=== PATIENT | female | born 1980 | race Caucasian/White ===

== ENCOUNTER 2017-06-12 18:20 | Emergency (ER) | payer MEDICAID, OTHER ==
[~2017-06-12] VITALS: Ht 162.6 cm; Wt 61.9 kg
[~2017-06-12 18:20] MED LIST: PREN-385 PO
[2017-06-12 18:43] VITALS: BP 122/97
[2017-06-12 20:29] VITALS: BP 118/70
== END 2017-06-12 20:29 | disposition home or self-care (01) ==
LOC: MED 18:20
DX: S01.81XA Laceration without foreign body of other part of head, initial encounter (principal); R03.0 Elevated blood-pressure reading, without diagnosis of hypertension; W18.30XA Fall on same level, unspecified, initial encounter; Y93.89 Activity, other specified; Y92.89 Other specified places as the place of occurrence of the external cause; Y99.8 Other external cause status
CPT/HCPCS: 90471; 90715; 99283

== ENCOUNTER 2017-08-07 20:45 | Emergency (ER) | payer OTHER ==
[~2017-08-07] VITALS: Ht 165.1 cm; Wt 63.5 kg
[2017-08-07 20:55] VITALS: BP 112/84
--- NOTE | 2017-08-07 21:01 | NUR ---
TO LOBBY, AMBULATORY, VS STABLE, A/W FOR BED, NATASHA NOTED
--- NOTE | 2017-08-08 00:55 | NUR ---
PATIENT LEFT WITHOUT BEING SEEN BY DR. Fuentes. NO FURTHER CARE PROVIDED FOR PATIENT.
== END 2017-08-08 00:55 | disposition left against medical advice (07) ==
LOC: MED 20:45
DX: Z76.0 Encounter for issue of repeat prescription (principal); Z53.21 Procedure and treatment not carried out due to patient leaving prior to being seen by health care provider

== ENCOUNTER 2018-10-18 14:15 | Observation (INO) | payer OTHER ==
[~2018-10-18] VITALS: Ht 165.1 cm; Wt 78.0 kg
[2018-10-18] MEDS ORDERED: ACETAMINOPHEN 325 MG TAB PO PRN (15:05)
[2018-10-18] MEDS ORDERED: ACETAMINOPHEN 325 MG TAB ONE (15:17)
[2018-10-18 15:25] LABS: BILIRUBIN,URINE NEGATIVE (NEGATIVE); BLOOD, URINE TRACE-I (NEGATIVE); COLOR,URINE YELLOW (YELLOW); LEUKOCYTE ESTERASE ,URINE 1+ (NEGATIVE); NITRITE, URINE NEGATIVE (NEGATIVE); UGLUCOSE NEGATIVE (NEGATIVE)
[2018-10-18 15:28] VITALS: BP 133/81
[2018-10-18 15:29] LABS: APPEARANCE,URINE HAZY (CLEAR)
[2018-10-18 15:43] LABS: RBC,URINE 0-5 /HPF (0-5); WBC,URINE 80-100 /HPF (0-5)
[2018-10-18 15:48] LABS: BARBITURATE, URINE NEGATIVE ng/ml (NEG <=200); BENZODIAZEPINE, URINE NEGATIVE ng/mL (NEG <=200); CANNABINOID, URINE NEGATIVE ng/mL (NEG <=50); COCAINE, URINE NEGATIVE ng/mL (NEG <=300); PHENCYCLIDINE SCREEN,URINE NEGATIVE ng/mL (NEG <=25)
[2018-10-18 15:49] LABS: OPIATE, URINE NEGATIVE ng/mL (NEG <=2000)
== END 2018-10-18 17:02 | disposition home or self-care (01) ==
LOC: MLD 14:15
PROVIDERS: ADMIT Obstetrics & Gynecology; ATTEND Obstetrics & Gynecology
DX: O26.892 Other specified pregnancy related conditions, second trimester (principal); R51 Headache; Z3A.27 27 weeks gestation of pregnancy
CPT/HCPCS: 76805; 80305; 81001; 87086; 87186; G0378; Q0092; C1758

== ENCOUNTER 2018-10-25 18:04 | Emergency (ER) | payer OTHER ==
[~2018-10-25] VITALS: Ht 165.1 cm; Wt 79.2 kg
[2018-10-25 18:38] VITALS: BP 145/95
--- NOTE | 2018-10-25 19:15 | NUR ---
PATIENT REFERRED FROM CLINIC FOR RHOGAM INJECTION. PREG 28 WEEKS. PT ALSO C/O COUGH& SORE THROAT X 1 WEEK. PT STATES SHE WANTS TO TERMINATE AND SHE HAS A SHORT FRAME OF TIME IN ORDER TO DO SO. DENIES N/V/D; SKIN IS PINK/WARM/DRY; AAOX4 WITH EVEN AND STEADY GAIT; LUNGS CLEAR BL; HR EVEN AND REGULAR; PT DENIES ANY FEVER, CP, SOB, OR COUGH AT THIS TIME; PATIENT STATES PAIN OF 0/10 AT THIS TIME; VSS; PATIENT POSITIONED FOR COMFORT; HOB ELEVATED; BEDRAILS UP X2; BED DOWN. ER MD MADE AWARE OF PT STATUS.
--- NOTE | 2018-10-25 19:16 | NUR ---
PT TAKEN TO BED 7
--- NOTE | 2018-10-25 19:46 | NUR ---
Dr. Swenson evaluating patient at bedside.
[2018-10-25] MEDS ORDERED: cefTRIAXone 250 MG in LIDOCAINE MPF 1% - 5 mL VIAL 0.9 ML IM ONE (20:15)
[2018-10-25] MEDS ORDERED: AZITHROMYCIN 250 MG TAB PO ONE (20:15)
--- NOTE | 2018-10-25 20:42 | NUR ---
CONSENT OBTAINED AND TOOK TO LAB TO GEROPSYCHOLOGIST RHOGAM. ADMINISTERED RHOGAM IM TO LEFT BUTTOCK. PT TOLERATED WELL.
[2018-10-25 21:36] VITALS: BP 143/91
--- NOTE | 2018-10-25 21:36 | NUR ---
Patient discharged with v/s stable. Written and verbal after care instructions given and explained. Patient alert, oriented and verbalized understanding of instructions. Ambulatory with steady gait. All questions addressed prior to discharge. ID band removed. Patient advised to follow up with PMD. Rx of MACROBID 100MG, SUDAFED 120MG, ROBITUSSIN DM 10MG-100MG/5ML SYRUP, BENADRYL 25MG given. Patient educated on indication of medication including possible reaction and side effects. Opportunity to ask questions provided and answered.
== END 2018-10-25 21:36 | disposition home or self-care (01) ==
LOC: MED 18:04
DX: O36.0130 Maternal care for anti-D [Rh] antibodies, third trimester, not applicable or unspecified (principal); O23.43 Unspecified infection of urinary tract in pregnancy, third trimester; O99.513 Diseases of the respiratory system complicating pregnancy, third trimester; J06.9 Acute upper respiratory infection, unspecified; Z3A.28 28 weeks gestation of pregnancy; Z79.899 Other long term (current) drug therapy
CPT/HCPCS: 36415; 81002; 81025; 86886; 86900; 86901; 96372; 99283; J0696; J2001; J2790

== ENCOUNTER 2020-05-15 17:09 | Emergency (ER) | payer OTHER ==
[~2020-05-15] VITALS: Ht 165.1 cm; Wt 71.7 kg
[2020-05-15 17:13] VITALS: BP 130/77
--- NOTE | 2020-05-15 17:18 | NUR ---
Pt ambulated to [facility]
--- NOTE | 2020-05-15 17:21 | NUR ---
40 y/o female from home c/o rash to bottom of right foot x 1 wk. Pt states increased pain with ambulation. Open wounds to bottom of right foot. No bleeding noted. 10/10 constant burning pain. Awake and alert. VSS
[2020-05-15 17:36] VITALS: BP 128/76
--- NOTE | 2020-05-15 17:37 | NUR ---
Patient discharged with v/s stable. Written and verbal after care instructions given and explained. Patient alert, oriented and verbalized understanding of instructions. Ambulatory with steady gait. All questions addressed prior to discharge. ID band removed. Patient advised to follow up with PMD. Rx of naprosyn,keflex,clotrimazole given. Patient educated on indication of medication including possible reaction and side effects. Opportunity to ask questions provided and answered.
== END 2020-05-15 17:37 | disposition home or self-care (01) ==
LOC: MED 17:09
DX: B99.9 Unspecified infectious disease (principal); Z79.899 Other long term (current) drug therapy; Z98.890 Other specified postprocedural states
CPT/HCPCS: 99283

== ENCOUNTER 2022-06-26 00:35 | Emergency (ER) | payer OTHER ==
[~2022-06-26] VITALS: Ht 162.6 cm; Wt 81.6 kg
[2022-06-26 00:37] VITALS: BP 167/108
--- NOTE | 2022-06-26 00:42 | NUR ---
DR. DUENAS IN TRIAGE TO EVALUATE PT.
[2022-06-26] MEDS ORDERED: LORazepam 2 MG/ML VIAL IM ONE (00:45)
[2022-06-26 01:45] VITALS: BP 167/108
--- NOTE | 2022-06-26 01:45 | NUR ---
Patient discharged with v/s stable. Written and verbal after care instructions given and explained. Patient verbalized understanding. Ambulatory with steady gait. All questions addressed prior to discharge. Advised to follow up with PMD.
== END 2022-06-26 01:45 | disposition home or self-care (01) ==
LOC: MED 00:35
DX: R06.4 Hyperventilation (principal); F41.9 Anxiety disorder, unspecified
CPT/HCPCS: 96372; 99283; J2060

== ENCOUNTER 2022-09-03 14:21 | Emergency (ER) | payer OTHER ==
[~2022-09-03] VITALS: Ht 162.6 cm; Wt 81.6 kg
[2022-09-03 14:39] VITALS: BP 159/94
--- NOTE | 2022-09-03 14:43 | NUR ---
PT AMB TO BED 8
--- NOTE | 2022-09-03 14:53 | NUR ---
URIEL Blevins evaluating patient at bedside.
--- NOTE | 2022-09-03 15:39 | NUR ---
Chaperoned URIEL Blevins during procedure.
[2022-09-03] MEDS ORDERED: DOXY-690 PO (15:40)
[2022-09-03] MEDS ORDERED: cefTRIAXone 500 MG in LIDOCAINE MPF 1% 1 ML IM ONE (15:40)
[2022-09-03] MEDS ORDERED: MUPI2OIN TP (15:40)
[2022-09-03 15:42] LABS: APPEARANCE,URINE CLEAR (CLEAR); BILIRUBIN,URINE NEGATIVE (NEGATIVE); BLOOD, URINE 2+ (NEGATIVE); COLOR,URINE YELLOW (YELLOW); LEUKOCYTE ESTERASE ,URINE NEGATIVE (NEGATIVE); NITRITE, URINE POSITIVE (NEGATIVE); UGLUCOSE NEGATIVE (NEGATIVE)
--- NOTE | 2022-09-03 15:43 | NUR ---
42 y/o female bib self with c/o right foot pain x 1 month. Patient is noted with an area of flaky skin under her right foot. Patient has pain upon movement. Patient is also requesting STD check. Patient has vaginal discharge x1 month. Denies any fevers, chills or SOB. Medical History: Denies NKDA
[2022-09-03] MEDS ORDERED: cefTRIAXone 500 MG VIAL ONE (15:49)
[2022-09-03] MEDS ORDERED: LIDOCAINE MPF 1% 5 ML ONE (15:49)
[2022-09-03 16:02] LABS: OTHER CASTS, URINE None Seen /LPF (None Seen); RBC,URINE 11-20 (MOD) /HPF (0-5)
--- NOTE | 2022-09-03 16:04 | NUR ---
URIEL Blevins re-evaluating patient at bedside.
[2022-09-03] MEDS ORDERED: NITR100C7 PO (16:07)
[2022-09-03 16:20] VITALS: BP 145/86
--- NOTE | 2022-09-03 16:20 | NUR ---
Patient discharged with v/s stable. Written and verbal after care instructions given. Patient alert, oriented and verbalized understanding of instructions. Ambulatory with steady gait. All questions addressed prior to discharge. ID band removed. Patient advised to follow up with PMD. Rx of Vibramycin, Mupirocin and Macrobid given. Opportunity to ask questions provided and answered.
--- NOTE | 2022-09-03 16:21 | NUR ---
The patient's care was reviewed and supervised by Swathi Jurado RN.
== END 2022-09-03 16:20 | disposition home or self-care (01) ==
LOC: MED 14:21
DX: N39.0 Urinary tract infection, site not specified (principal); R21 Rash and other nonspecific skin eruption; Z11.3 Encounter for screening for infections with a predominantly sexual mode of transmission; Z79.899 Other long term (current) drug therapy
CPT/HCPCS: 81001; 81025; 87086; 87210; 87491; 96372; 99283; J0696; J2001

== ENCOUNTER 2023-02-15 02:41 | Emergency (ER) | payer OTHER ==
[~2023-02-15] VITALS: Ht 165.1 cm; Wt 81.6 kg
[~2023-02-15 02:41] MED LIST changes: +DOXY-690 PO; +MUPI2OIN TP; +NITR100C7 PO
[2023-02-15 02:50] VITALS: BP 134/93; PULSE 108; RESP 20; TEMP 98; O2SAT 100
--- NOTE | 2023-02-15 03:04 | NUR ---
PT WENT TO BED 2
--- NOTE | 2023-02-15 03:04 | NUR ---
BOYFRIEND AT THE BEDSIDE
--- NOTE | 2023-02-15 03:05 | NUR ---
Patient resting in bed, A/Ox4, chest rise and fall symmetrical, no s/s of distress, on monitor.
[2023-02-15] MEDS ORDERED: MORPHINE SULFATE 4 MG/ML SYR IM ONE (03:45)
--- NOTE | 2023-02-15 05:00 | NUR ---
Patient resting in bed, A/Ox4, chest rise and fall symmetrical, no c/o pain or s/s of distress, on monitor.
[2023-02-15 05:18] LABS: BARBITURATE, URINE NEGATIVE ng/ml (NEG <=200); BENZODIAZEPINE, URINE NEGATIVE ng/mL (NEG <=200); CANNABINOID, URINE NEGATIVE ng/mL (NEG <=50); COCAINE, URINE NEGATIVE ng/mL (NEG <=300); OPIATE, URINE NEGATIVE ng/mL (NEG <=2000); PHENCYCLIDINE SCREEN,URINE NEGATIVE ng/mL (NEG <=25)
[2023-02-15] MEDS ORDERED: NAPR-54 PO (05:31)
[2023-02-15 06:00] VITALS: BP 119/84; PULSE 75; RESP 16; TEMP 98.1; O2SAT 100
== END 2023-02-15 06:00 | disposition home or self-care (01) ==
LOC: MED 02:41
DX: R51.9 Headache, unspecified (principal); Z79.899 Other long term (current) drug therapy
CPT/HCPCS: 80305; 81025; 96372; 99283; J2270